=== PATIENT | male | born 1980 | race Caucasian/White ===

== ENCOUNTER 2021-01-27 12:41 | Emergency (ER) | payer OTHER ==
[2021-01-27] MEDS ORDERED: FLORASTOR250 MG PO (12:54)
== END 2021-01-27 12:57 | disposition home or self-care (01) ==
LOC: ER1 12:41
DX: R19.7 Diarrhea, unspecified (principal); F17.200 Nicotine dependence, unspecified, uncomplicated
CPT/HCPCS: 99283